=== PATIENT | female | born 2000 | race Caucasian/White ===

== ENCOUNTER 2023-04-18 22:02 | Emergency (ER) | payer OTHER, SELFPAY ==
[2023-04-18 22:09] VITALS: BP 117/69; PULSE 90; RESP 14; TEMP 36.8; O2SAT 98
--- NOTE | 2023-04-18 22:15 | DI.RAD_ITS ---
Exam(s) XR ELBOW RT COMPLETE EXAM: XR ELBOW RT COMPLETE CLINICAL HISTORY: MELANY. TECHNIQUE: 2D digital imaging was performed of the left elbow. Three images were obtained. AP, lat eral and oblique views were obtained. COMPARISON: No exams were available for comparison FINDINGS: BONES: No acute fracture is present. No bony destructive lesion is seen. JOINTS: The elbow is normally aligned. No joint effusion is seen. SOFT TISSUE: Normal. IMPRESSION: Unremarkable radiographs of the right elbow. DATA REPOSITORY: RADIATION DOSE DELIVERED:
--- NOTE | 2023-04-18 22:15 | DI.RAD_ITS ---
Exam(s) XR WRIST RT COMPL NAVICULAR EXAM: XR WRIST RT COMPL NAVICULAR CLINICAL HISTORY: FOOSH. TECHNIQUE: 2D digital imaging was performed of the right wrist. Four views were obtained. Scaphoid, PA, lateral and oblique views were obtained. COMPARISON: No exams were available for comparison FINDINGS: BONES: No acute fracture is present. No bony destructive lesion is seen. JOINTS: The carpal bones are normally aligned. SOFT TISSUE: Normal. IMPRESSION: Unremarkable radiographs of the right wrist. DATA REPOSITORY: RADIATION DOSE DELIVERED:
--- NOTE | 2023-04-18 22:26 | W.ED.GENAD ---
Discharge Plan Disposition Patient Disposition: Home Condition: Good Discharge Details Clinical Impression: Right wrist sprain, Contusion of elbow ED Provider: Feli Damain Home Meds and New Rx's Prescriptions: No Action No Known Home Meds Discharge Instructions Instructions: Contusion in Adults (ED), Wrist Sprain (ED) Additional Instructions: As we discussed, your imaging is reassuring here today with no evidence of fracture or dislocation. However, I am concerned about your scaphoid bone as we discussed. This will need repeat imaging in 2 weeks which can be arranged with your primary care office. Please call the office tomorrow to schedule follow-up appointment. Please encourage rest, ice, elevation. Tylenol and ibuprofen as needed for discomfort. Please continue with thumb spica until reevaluated by your primary care. You may take this off to shower but otherwise please continue to immobilize this area. Please avoid heavy lifting until cleared by your primary care. Stand Alone Forms: Work Release Discharge Data Discharge Date/Time-TO BE ENTERED AT DEPARTURE: 04/18/23 23:41 Medical Decision Making Patient is a pleasant 22-year-old [id number] female presenting today with chief complaint of right wrist and elbow pain. She reports a prior to arrival she slipped and fell on her outstretched right hand. Denies other injury at the time of the incident. That this was witnessed by her roommate. States that when she fell she immediately noted pain in the right wrist and elbow. Denies any numbness or tingling. On exam, patient appears nontoxic. She has no significant swelling or discoloration to the elbow or wrist. She is really diffusely tender about the elbow although she does have full range of motion. She is tender maximally over the right anatomical snuffbox and also has pain with axial loading of the thumb. Sensation is intact. Neurovascularly intact. 2+ distal pulses. Full range of motion of the wrist. Will obtain x-rays to evaluate for potential fracture. She did take ibuprofen prior to arrival. FINDINGS: Bones/joints: Normal. Soft tissues: Normal. IMPRESSION: No acute findings FINDINGS: Bones/joints: Normal. Soft tissues: Normal. IMPRESSION: No acute findings Discussed these with the patient. As she does have snuffbox tenderness and given the mechanism of action, we will fit with a thumb spica. Advised to follow-up with her primary care in 2 weeks for reevaluation as well as repeat imaging. Patient is agreeable with this plan. Encouraged rest, ice, elevation. Tylenol and ibuprofen as needed for discomfort. Patient requesting some Tylenol for her discomfort. All of her questions and concerns were addressed and she is in agreement this plan. HPI General Date/Time Provider Initiated Documentation: 04/18/23 22:16. Limitations to Documentation: no limitations. Information obtained by: patient and RN notes reviewed. History of Present Illness 22 year old F presents to the emergency department with the chief complaint of right elbow and wrist pain after FOOSH, described as moderate, with intensity rated at 6. Quality is described as aching, and is localized to the right and upper extremity. Patient reports no radiation. Patient started experiencing this hour(s) and it has been constant. Immobilization improves symptom(s), Movement worsens symptoms . Patient notes no other symptoms.. Patient did receive the following treatments prior to arrival, none Related Data Home Medications Medication Instructions Recorded Confirmed Unknown [No Known Home Meds] 04/18/23 04/18/23 Allergies Allergy/AdvReac Type Severity Reaction Status Date / Time No Known Allergies Allergy Unverified 04/18/23 22:15 General Stated Complaint: Orthopedic HEMANT: 4 Review of Systems Constitutional Constitutional: Reports as per HPI, Denies headache(s) and Denies weakness ENT Ears, Nose, Mouth, and Throat: Denies headache(s) Cardiovascular Cardiovascular: Reports as per HPI Musculoskeletal Musculoskeletal: Reports as per HPI and Denies tingling Integumentary/Breasts Skin/Breast: Reports as per HPI, Denies rash and Denies wounds Neurologic Neurologic: Reports as per HPI, Denies headache(s), Denies tingling, Denies paresthesias and Denies weakness [facility] All Active Problems (Updated 04/18/23 @ 23:18 by DEYVI Tubbs) Right wrist sprain (Acute) Contusion of elbow (Acute) Social History Smoking/Tobacco Use Status: Never Smoking risk assessment performed?: Yes Alcohol Intake: never Drug use: Never Substance use type: does not use Do you feel safe at home: Yes Do you feel safe in your relationship?: Yes Exam Const General: cooperative, healthy appearing, comfortable, no acute distress, well developed and well groomed Nutritional Appearance: average body habitus and well nourished Orientation: alert and awake Resp Effort & Inspection: normal respiratory effort, able to speak in complete sentences and no respiratory distress Cardio Rate: regular rate Rhythm: regular rhythm Skin General skin exam: no rashes or lesions noted Lesions: no lesions Rashes: no rashes Trauma: no lacerations or abrasions Neuro General: patient alert and patient awake Cognition: normal cognition Speech: speech normal Motor: muscle tone normal throughout Sensory Exam: no sensory deficits noted Extrem Right upper extremity: normal to inspection, full ROM, normal capillary refill, no joint enlargement, shoulder/upper arm Details: normal to inspection and normal ROM; no tenderness and no swelling, elbow/forearm Details: normal to inspection, tenderness (diffuse tenderness, no focal pain), normal ROM and distal pulses intact; no swelling, no lacerations and no crepitus, wrist Details: normal to inspection, tenderness Location: of the anatomic snuffbox, normal ROM, deformity, normal vascular exam and radial pulse present; no swelling, no unusual warmth, no lacerations, no ecchymosis and no crepitus and hand Details: normal to inspection, normal capillary refill, neuromotor exam normal, neurosensory exam normal, tendon exam normal and normal ROM of fingers; no tenderness and no ecchymosis Course Vital Signs Vital signs: Vital Signs Temperature 36.8 C 04/18/23 22:09 Pulse 90 04/18/23 22:09 Respiratory Rate 14 04/18/23 22:09 Blood Pressure 117/69 04/18/23 22:09 Pulse Oximetry 98 04/18/23 22:09 Temperature 36.8 C 04/18/23 22:09 Temperature Source Temporal Artery Scan 04/18/23 22:09 Pulse 90 04/18/23 22:09 Respiratory Rate 14 04/18/23 22:09 Respiratory Effort Normal, Non-Labored 04/18/23 22:17 Blood Pressure 117/69 04/18/23 22:09 Blood Pressure Position Sitting 04/18/23 22:09 Pulse Oximetry 98 04/18/23 22:09 Oxygen Delivery Method Room Air 04/18/23 22:09 Oxygen Flow Rate 0 04/18/23 22:09 Pain Level 6 04/18/23 22:09
--- NOTE | 2023-04-18 23:02 | DI.VRAD_ITS ---
PROCEDURE INFORMATION: Exam: XR Right Wrist Exam date and time: 04/18/2023 10:31 PM Age: 22 years old Clinical indication: Injury or trauma; Fall; Blunt trauma (contusions or hematomas); Wrist; Right; Injury date: 04/18/23; Patient HX: Hector TECHNIQUE: Imaging protocol: Radiologic exam of the right wrist. Views: 3 or more views. COMPARISON: No relevant prior studies available. FINDINGS: Bones/joints: Normal. Soft tissues: Normal. IMPRESSION: No acute findings. Dictated and Authenticated by: Ceasar Son MD. Ordering:AUDRA Edmond MD
--- NOTE | 2023-04-18 23:02 | DI.VRAD_ITS ---
PROCEDURE INFORMATION: Exam: XR Right Elbow Exam date and time: 04/18/2023 10:34 PM Age: 22 years old Clinical indication: Injury or trauma; Fall; Blunt trauma (contusions or hematomas); Elbow; Right; Injury date: 04/18/23; Injury details: Foosh TECHNIQUE: Imaging protocol: Radiologic exam of the right elbow. Views: 3 or more views. COMPARISON: CR XR WRIST RT COMPL NAVICULAR 04/18/2023 10:31 PM FINDINGS: Bones/joints: Normal. Soft tissues: Normal. IMPRESSION: No acute findings. Dictated and Authenticated by: Ceasar Son MD. Ordering:AUDRA Edmond MD
--- NOTE | 2023-04-19 14:37 | NUR.NOTE ---
Nursing Note: Patient was questioning her work note directions
== END 2023-04-18 23:41 | disposition home or self-care (01) ==
PROVIDERS: Emergency Provider Physician Assistant
DX: S63.501A Unspecified sprain of right wrist, initial encounter (principal); S50.01XA Contusion of right elbow, initial encounter; W19.XXXA Unspecified fall, initial encounter
CPT/HCPCS: 99284; 73080; 73110; 99283

== ENCOUNTER 2023-05-01 13:30 | Emergency (ER) | payer OTHER, SELFPAY ==
[2023-05-01 13:36] VITALS: BP 128/77; PULSE 96; RESP 20; TEMP 36.8; O2SAT 99
--- NOTE | 2023-05-01 14:15 | DI.RAD_ITS ---
Exam(s) XR WRIST RT COMPL NAVICULAR EXAM: XR WRIST RT COMPL NAVICULAR CLINICAL HISTORY: persistent pain, s/p fall 2 weeks ago. TECHNIQUE: 2D digital imaging was performed. COMPARISON: No exams were available for comparison FINDINGS: Four views No evidence of acute fracture nor dislocation nor significant ulnar variance. Bone density normal. Scaphoid and scapholunate distance unremarkable. IMPRESSION: No significant osseous findings. DATA REPOSITORY: RADIATION DOSE DELIVERED:
--- NOTE | 2023-05-01 14:58 | DI.VRAD_ITS ---
PROCEDURE INFORMATION: Exam: XR Right Wrist Exam date and time: 05/01/2023 2:40 PM Age: 22 years old Clinical indication: Other: Persistent pain, S/P fall 2 weeks ago TECHNIQUE: Imaging protocol: Radiologic exam of the right wrist. Views: 3 or more views. COMPARISON: CR XR WRIST RT COMPL NAVICULAR 04/18/2023 10:31 PM FINDINGS: Bones/joints: Normal. Soft tissues: Normal. IMPRESSION: No acute findings. Dictated and Authenticated by: Ariana Gomez MD. Ordering:LIBERTY Crawford MD
--- NOTE | 2023-05-01 15:17 | W.ED.GENAD ---
Discharge Plan Disposition Patient Disposition: Home Discharge Details Clinical Impression: Tendinitis Primary Care Provider: Unknown,Unknown ED Provider: Yvette Jeter Home Meds and New Rx's Prescriptions: No Action No Known Home Meds Discharge Instructions Instructions: Tendinitis (ED) Additional Instructions: Take ibuprofen 600 mg every 8 hours with food for the next 3 days, start using new wrist a bit as tolerated With persistent pain greater than 1 week, please find orthopedic info. below for you to Follow-up with Stand Alone Forms: Work Release Referrals: Yovanny Cote MD [ [facility] STAFF PHYSICIAN] - Discharge Data Discharge Date/Time-TO BE ENTERED AT DEPARTURE: 05/01/23 15:40 Medical Decision Making X-ray of right hand that does not show evidence of acute abnormality per radiology interpretation and my review This is right wrist and hand pain after a fall 2 weeks prior to assessment Refer to orthopedics Encouraged to use hand and remove wrist splint as tolerated Ibuprofen 600 mg every 8 hours with food Outpatient PCP to establish care Return precautions reviewed and patient expressed understanding HPI General Date/Time Provider Initiated Documentation: 05/01/23 13:34. HPI Narrative: This 22-year-old female presents with persistent pain to her right wrist and thumb for the past 3 weeks. Denies any additional injuries, did have an initial injury and had x-rays performed that did not show evidence of acute abnormality. Denies any chance of . States persistent pain predominantly in her right thumb region. Related Data Home Medications Medication Instructions Recorded Confirmed Unknown [No Known Home Meds] 04/18/23 05/01/23 Allergies Allergy/AdvReac Type Severity Reaction Status Date / Time No Known Allergies Allergy Unverified 05/01/23 13:40 General Stated Complaint: Orthopedic HEMANT: 4 PFSH All Active Problems (Updated 05/01/23 @ 15:16 by DEYVI Mcfarland) Right wrist sprain (Acute) Contusion of elbow (Acute) Tendinitis (Acute) Social History Smoking/Tobacco Use Status: Never Smoking risk assessment performed?: Yes Alcohol Intake: never Drug use: Never Substance use type: does not use Do you feel safe at home: Yes Do you feel safe in your relationship?: Yes Course Vital Signs Vital signs: Vital Signs Temperature 36.8 C 05/01/23 13:36 Pulse 96 H 05/01/23 13:36 Respiratory Rate 20 05/01/23 13:36 Blood Pressure 128/77 05/01/23 13:36 Pulse Oximetry 99 05/01/23 13:36 Temperature 36.8 C 05/01/23 13:36 Temperature Source Oral 05/01/23 13:36 Pulse 96 H 05/01/23 13:36 Respiratory Rate 20 05/01/23 13:36 Respiratory Effort Normal 05/01/23 13:41 Blood Pressure 128/77 05/01/23 13:36 Blood Pressure Position Sitting 05/01/23 13:36 Pulse Oximetry 99 05/01/23 13:36 Oxygen Delivery Method Room Air 05/01/23 13:36 Oxygen Flow Rate 0 05/01/23 13:36 Pain Level 7 05/01/23 13:36
[2023-05-01 15:32] VITALS: BP 122/70; PULSE 84; RESP 18; O2SAT 98
== END 2023-05-01 15:40 | disposition home or self-care (01) ==
PROVIDERS: Emergency Provider Physician Assistant
DX: M25.531 Pain in right wrist (principal); M77.8 Other enthesopathies, not elsewhere classified
CPT/HCPCS: 99283; 73110

== ENCOUNTER 2023-05-11 14:54 | Emergency (ER) | payer OTHER, SELFPAY ==
[2023-05-11 15:20] VITALS: BP 100/73; PULSE 93; RESP 18; TEMP 37.1; O2SAT 99
[2023-05-11 17:22] LABS: Bilirubin Negative (Negative); Blood Negative (Negative); Clarity Clear (Clear); Glucose Negative (Negative); Ketones Negative (Negative); Leukocyte Esterase Trace (Negative); Nitrite Negative (Negative); Urobilinogen 0.2 mg/dL (Up to 0.2)
--- NOTE | 2023-05-11 17:52 | W.ED.GENAD ---
Discharge Plan Disposition Patient Disposition: Home Condition: Good Discharge Details Clinical Impression: Viral upper respiratory illness Primary Care Provider: None,None ED Provider: Linda Reyna Home Meds and New Rx's Prescriptions: No Action No Known Home Meds Discharge Instructions Instructions: Upper Respiratory Infection (ED) Additional Instructions: Recheck with your primary care doc as needed. Get Sudafed from the pharmacy to unclog your nose and ears. Ibuprofen and or Tylenol as needed for pain. Rest and drink plenty of fluids. Discharge Data Discharge Date/Time-TO BE ENTERED AT DEPARTURE: 05/11/23 18:00 Medical Decision Making Patient was advised to get pseudoephedrine from the pharmacist to unclog her nose. This will likely unclog her ears as well due to the eustachian tube connection. Urinalysis was completely fine and she was reassured. She was nontoxic-appearing and discharged home. She will follow-up with her PCP for continued issues. Medical Records Medical records reviewed: Yes I reviewed the patient's medical records. HPI General Date/Time Provider Initiated Documentation: 05/11/23 16:36. HPI Narrative: This 22-year-old female patient presents with a chief complaint of URI symptoms which started several days ago. Patient reports that she feels like she has some maxillary sinus pressure as well as ear pressure. She does have a little bit of a runny nose. She also reports that she has a history of UTIs and a day or so ago was voiding more than normal. She has had no fever, cough, sore throat, urgency, burning, or abdominal pain. There has been no nausea or vomiting. She has not tried anything for the sinus and ear pressure. Her symptoms overall are mild to moderate. Related Data Home Medications Medication Instructions Recorded Confirmed Unknown [No Known Home Meds] 04/18/23 05/01/23 Allergies Allergy/AdvReac Type Severity Reaction Status Date / Time No Known Allergies Allergy Unverified 05/01/23 13:40 General Stated Complaint: EarProblem HEMANT: 3 Review of Systems Constitutional Constitutional: Denies chills, Denies fever(s), Denies headache(s) and Denies weakness Eyes Eyes: Denies diplopia and Reports other (no redness) ENT Ears, Nose, Mouth, and Throat: Reports otalgia (pressure), Denies headache(s), Denies nasal congestion, Reports nasal discharge, Denies neck pain and Denies sore throat Cardiovascular Cardiovascular: Denies chest pain, Denies palpitations and Denies dyspnea Respiratory Respiratory: Denies cough and Denies dyspnea Gastrointestinal Gastrointestinal: Denies abdominal pain, Denies diarrhea, Denies nausea and Denies vomiting Genitourinary Genitourinary: Denies dysuria and Reports other (Has been peeing more than baseline) Musculoskeletal Musculoskeletal: Denies myalgias, Denies muscle weakness, Denies neck pain, Denies numbness and Reports other (edema) Integumentary/Breasts Skin/Breast: Denies change in pigmentation and Denies rash Neurologic Neurologic: Denies headache(s), Denies numbness and Denies weakness Endocrine Endocrine: Denies palpitations PFSH All Active Problems Right wrist sprain (Acute) Contusion of elbow (Acute) Tendinitis (Acute) Viral upper respiratory illness (Acute) Social History Smoking/Tobacco Use Status: Never Smoking risk assessment performed?: Yes Alcohol Intake: never Drug use: Never Substance use type: does not use Do you feel safe at home: Yes Do you feel safe in your relationship?: Yes Exam Const General: no acute distress, well developed, well groomed and not in acute distress Nutritional Appearance: well nourished Orientation: alert and oriented x3 HENMT Head: normocephalic and atraumatic Ears: external ears normal and TM's normal bilaterally Face and sinus: sinuses nontender and face symmetric Mouth: oropharynx normal and moist mucous membranes Throat: posterior oropharynx normal Eyes Conjunctivae: conjunctivae normal Neck Neck: full ROM and supple Chest Chest: normal inspection of the chest Resp Effort & Inspection: normal respiratory effort Auscultation: clear to auscultation bilaterally Cardio Rate: regular rate Rhythm: regular rhythm Heart Sounds: no murmurs and no rubs GI Inspection: normal to inspection Palpation: soft, nontender and other (non distended) Auscultation: normal bowel sounds Skin General skin exam: no rashes or lesions noted and other (pink, warm, dry) Neuro General: patient alert, patient awake and patient oriented x3 Speech: speech normal Motor: other (ARREOLA) Sensory Exam: no sensory deficits noted Extrem General: normal to inspection, full ROM and pedal edema present Psych Mental Status: mental status grossly normal Speech and Movement: speech and movement normal Affect: normal affect Course Vital Signs Vital signs: Vital Signs Temperature 37.1 C 05/11/23 15:20 Pulse 93 H 05/11/23 15:20 Respiratory Rate 18 05/11/23 15:20 Blood Pressure 100/73 05/11/23 15:20 Pulse Oximetry 99 05/11/23 15:20 Temperature 37.1 C 05/11/23 15:20 Temperature Source Skin 05/11/23 15:20 Pulse 93 H 05/11/23 15:20 Respiratory Rate 18 05/11/23 15:20 Respiratory Effort Normal 05/11/23 15:24 Blood Pressure 100/73 05/11/23 15:20 Blood Pressure Position Sitting 05/11/23 15:20 Pulse Oximetry 99 05/11/23 15:20 Oxygen Delivery Method Room Air 05/11/23 15:20 Oxygen Flow Rate 0 05/11/23 15:20 Lab/Test Results Lab/Test Results: Laboratory Tests Range/Units 05/11/23 16:58 Urine Color (Yellow) Yellow Urine Clarity (Clear) Clear Urine pH (5-8) 5.0 Ur Specific [place] (1.005-1.025) 1.020 Urine Protein (Negative) mg/dL Negative Urine Ketones (Negative) mg/dL Negative Urine Blood (Negative) Negative Urine Nitrite (Negative) Negative Urine Bilirubin (Negative) Negative Urine Urobilinogen (Up to 0.2) mg/dL 0.2 Ur Leukocyte Esterase (Negative) Trace H Urine Glucose (Negative) mg/dL Negative
[2023-05-11 17:53] LABS: Bacteria Few HPF (Negative); C & S Indicated? No/Sq. Contamination; Crystals Negative HPF (Negative); Epithelial Cells Many HPF (Negative); Mucus Trace (Negative); RBC 0-2 HPF (0-2)
== END 2023-05-11 18:00 | disposition home or self-care (01) ==
PROVIDERS: Emergency Provider Emergency Medicine
DX: J06.9 Acute upper respiratory infection, unspecified (principal)
CPT/HCPCS: 99282; 81003; 81015; 99283

== ENCOUNTER 2024-02-29 19:48 | Emergency (ER) | payer OTHER, SELFPAY ==
[2024-02-29] VITALS (12 sets, daily range): BP systolic 89–148; BP diastolic 50–67; PULSE 68–82; RESP 16–32; TEMP 36.6; O2SAT 96–98
--- NOTE | 2024-02-29 19:59 | W.ED.GENAD ---
Discharge Plan Disposition Patient Disposition: Home Condition: Good Discharge Details Clinical Impression: Allergic reaction Primary Care Provider: Unknown,Unknown ED Provider: Devante Strong Home Meds and New Rx's Prescriptions: New prednisone 50 mg tablet 50 mg PO DAILY Qty: 5 0RF loratadine 10 mg capsule 10 mg PO DAILY Qty: 10 0RF No Action epinephrine [EpiPen] 0.3 mg/0.3 mL auto-injector 0.3 ml subcut Q5-15M PRN Rx Instructions: do not exceed 2 doses per episode Discharge Instructions Instructions: Allergic Reaction ED Additional Instructions: At this time your allergic reaction has subsided. Please take the prednisone as directed. Please also take 10 mg of loratadine every day while you are on the prednisone. Please avoid any tomato products. If you notice any worsening of your symptoms, or any new symptoms such as vomiting, diarrhea, fever, chills, shortness of breath, chest pain, numbness, weakness, or fainting , please return immediately to the emergency department for reevaluation. Please follow up with your primary care provider as soon as possible for reassessment and reevaluation. As always, it was a pleasure participating in your medical care today. HPI General Date/Time Provider Initiated Documentation: 02/29/24 19:58. 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 Patient states that about 20 minutes prior to arrival she was eating some soup that accidentally had some tomato chunks in it. She swallowed them, and shortly thereafter developed itchiness all over, and shininess on her fingers. She states this is usually the onset of her symptoms. She has not required epinephrine in the past. She has not ever had anaphylaxis. She denies any vomiting but does admit to mild stomach upset. She denies any chest pain or difficulty breathing. No other complaints at this time. No other modifying factors. She did take 50 mg of Benadryl prior to arrival. She does not have an EpiPen at home. Related Data Home Medications Medication Instructions Recorded Confirmed epinephrine 0.3 mg/0.3 mL 0.3 ml subcut Q5-15M PRN 02/29/24 02/29/24 injection, auto-injector (EpiPen) loratadine 10 mg capsule 10 mg PO DAILY #10 caps 02/29/24 prednisone 50 mg tablet 50 mg PO DAILY #5 tabs 02/29/24 Previous Rx's Medication Instructions Recorded loratadine 10 mg capsule 10 mg PO DAILY #10 caps 02/29/24 prednisone 50 mg tablet 50 mg PO DAILY #5 tabs 02/29/24 Allergies Allergy/AdvReac Type Severity Reaction Status Date / Time No Known Allergies Allergy Unverified 05/01/23 13:40 General Stated Complaint: Allergic HEMANT: 3 Review of Systems All systems reviewed & are unremarkable except as noted in HPI and below Exam Narrative Exam Narrative: 1.Const: Well-nourished, Well-developed, appearing stated age 2.Eyes: PERRL, no conjunctival injection, and symmetrical lids. 3.ENT: Atraumatic external nose and ears. Moist MM. Neck: Symmetric, trachea midline, No thyromegaly. No signs of angioedema 4.CVS: +S1/S2, No murmurs or gallops. Peripheral pulses 2+ and equal in all extremities. Brisk capillary refill in all extremities. 5.RESP: Unlabored respiratory effort. Clear to auscultation bilaterally. No wheezes rales or rhonchi 6.GI: Soft, Nontender/Nondistended, No hepatosplenomegaly. No guarding or rebound. 7.MSK: Normocephalic/Atraumatic, Extremities w/o deformity or ttp No cyanosis or clubbing, Normal movement of all extremities 8.Skin: Warm, Dry. No rashes or lesions. No evidence of rash or significant abnormality 9.Neuro: oncology nurse navigator II-XII grossly intact. Sensation grossly intact, no focal neurologic deficits. 10.Psych: (AAO) x3. Appropriate mood and affect Course Vital Signs Vital signs: Vital Signs Temperature 36.6 C 02/29/24 19:54 Pulse 80 02/29/24 19:54 Respiratory Rate 16 02/29/24 19:54 Blood Pressure 148/63 H 02/29/24 19:54 Pulse Oximetry 98 02/29/24 19:54 Temperature 36.6 C 02/29/24 19:54 Pulse 80 02/29/24 19:54 Respiratory Rate 16 02/29/24 19:54 Respiratory Effort Normal 02/29/24 19:57 Blood Pressure 148/63 H 02/29/24 19:54 Pulse Oximetry 98 02/29/24 19:54 Oxygen Delivery Method Room Air 02/29/24 19:54 Oxygen Flow Rate 0 02/29/24 19:54 Pain Level 0 02/29/24 19:54 Medical Decision Making 23-year-old female with a past medical history of allergies to tomatoes, presents today after ingesting a tomato accidentally. Patient states that about 20 minutes prior to arrival she was eating some soup that accidentally had some tomato chunks in it. She swallowed them, and shortly thereafter developed itchiness all over, and shininess on her fingers. She states this is usually the onset of her symptoms. She has not required epinephrine in the past. She has not ever had anaphylaxis. She denies any vomiting but does admit to mild stomach upset. She denies any chest pain or difficulty breathing. No other complaints at this time. No other modifying factors. She did take 50 mg of Benadryl prior to arrival. She does not have an EpiPen at home. Exam demonstrates well-appearing female, no evidence of anaphylaxis. No vomiting at this time, no wheezes, no hypoxemia. Vital signs demonstrate no tachycardia, minimal hypertension. No hypotension or shock. Patient does have minimal swelling of her fingers, but no signs of angioedema in her mouth or anywhere else. She has taken 50 mg of Benadryl already. No indication for anaphylaxis or indication for epinephrine at this time. We will give IM Solu-Medrol, 20 of loratadine, monitor closely and reassess. If the patient does have worsening of her symptoms, we may need to transition her pivot to epinephrine IM use, but there is no indication for this at this time. Patient was reassessed after few hours of observation. All symptoms have resolved, she feels well and would like to go home. She does have an EpiPen for home use. Will prescribe prednisone for home use recommend continue loratadine. Discussed red flags which to return to I have extensively reviewed the treatment plan and discharge instructions with the patient. I have addressed all patient concerns at this time. The patient was made aware of what symptoms to monitor for that would warrant a return to the emergency department. Discussed the plan with the patient, they demonstrate verbal understanding and agreement with our assessment and plan at this time. The documentation in this chart was dictated using [employer] dictation software. Please excuse any dictation errors. Quality:SDOH Health Related Social Needs: No Data to Display PFSH All Active Problems (Updated 02/29/24 @ 21:25 by Devante Strong DO) Allergic reaction (Acute) Social History Smoking/Tobacco Use Status: Never Smoking risk assessment performed?: Yes Alcohol Intake: never Drug use: Never Substance use type: does not use Do you feel safe at home: Yes Do you feel safe in your relationship?: Yes
[2024-02-29] MEDS: Loratidine 10 MG TAB 20 MG PO (20:10)
[2024-02-29] MEDS: methylPREDNISolone SUCC 125 MG VIAL IM (20:10)
== END 2024-02-29 21:31 | disposition home or self-care (01) ==
PROVIDERS: Emergency Provider Student in an Organized Health Care Education/Training Program
DX: R06.02 Shortness of breath (principal); R22.0 Localized swelling, mass and lump, head; R11.0 Nausea; T78.1XXA Other adverse food reactions, not elsewhere classified, initial encounter
CPT/HCPCS: 81025; 96372; 99284; J2919